=== PATIENT | female | born 1995 | race Caucasian/White ===

== ENCOUNTER → 2017-07-14 | Outpatient (REF) | LOC: LAB 09:55 | DX: Z02.83 Encounter for blood-alcohol and blood-drug test (principal); Z02.1 Encounter for pre-employment examination ==

== ENCOUNTER → 2024-04-05 | Outpatient (CLI) | payer BC ==
[2024-04-05 14:13] LABS: BASO # 0.04 K/mm3 (0.02-0.10); EOS # 0.13 K/mm3 (0.04-0.40); EOS % 2.9 % (1.0-5.0); HEMATOCRIT 37.9 % (37.0-47.0); LYMPH# 1.98 K/mm3 (1.50-4.00); MEAN CELL VOLUME 93 fl (78-100); MEAN CORPUSCULAR HEMOGLOBIN 32 pg (27-31); MEAN CORPUSCULAR HGB CONC 34 g/dL (33-37); MEAN PLATELET VOLUME 9.5 fl (7.4-10.4); MONO # 0.25 K/mm3 (0.20-0.80); NEU # 2.01 K/mm3 (1.40-6.50); PLATELET COUNT 238 K/mm3 (130-400); RED BLOOD COUNT 4.08 M/mm3 (4.10-5.30); RED CELL DISTRIBUTION WIDTH 12.6 % (11.5-14.5); WHITE BLOOD COUNT 4.4 K/mm3 (4.8-10.8)
[2024-04-05 14:17] LABS: ALBUMIN 4.7 g/dL (3.5-5.0); SODIUM 141 mmol/L (136-145)
[2024-04-05 14:18] LABS: CALCIUM 9.4 mg/dL (8.3-10.5)
[2024-04-05 14:20] LABS: GLUCOSE 78 mg/dL (65-105); TOTAL PROTEIN 7.4 g/dL (6.4-8.3)
[2024-04-05 14:21] LABS: CARBON DIOXIDE 24 mmol/L (22-29); TOTAL BILIRUBIN 0.7 mg/dL (0.2-1.2)
[2024-04-05 14:25] LABS: AST-SGOT 26 U/L (5-34)
[2024-04-05 14:26] LABS: ALT/SGPT 14 U/L (0-55)
[2024-04-05 23:10] LABS: T3 TOTAL 40 ng/dL (35-193)
== END ==
LOC: LAB 13:47
PROVIDERS: Family Medicine
DX: E78.5 Hyperlipidemia, unspecified (principal); I10 Essential (primary) hypertension; E06.3 Autoimmune thyroiditis; E55.9 Vitamin D deficiency, unspecified; E53.9 Vitamin B deficiency, unspecified

== ENCOUNTER → 2024-06-22 | Outpatient (CLI) | payer BC | LOC: RAD 14:03 | DX: S62.665A Nondisplaced fracture of distal phalanx of left ring finger, initial encounter for closed fracture (principal); X58.XXXA Exposure to other specified factors, initial encounter ==